=== PATIENT | male | born 1935 | race Caucasian/White ===

== ENCOUNTER 2016-05-10 11:47 | Day surgery (SDC) | payer OTHER ==
[2016-05-10] MEDS ORDERED: LR 1,000 ML IV ONE (12:48)
[2016-05-10] MEDS ORDERED: LIDOCAINE 1% 5 ML SDV ID PRN (12:48)
[2016-05-10] MEDS ORDERED: LIDOCAINE 2% 100 MG/5 ML SYR IVP ONE ×2 (13:21)
[2016-05-10] MEDS ORDERED: PROPOFOL 200 MG/20 ML VIAL ONE ×2 (13:21→13:36)
[2016-05-10] MEDS ORDERED: PHENYLEPHRINE HCL 100 MCG/ML SYR ONE (13:51)
--- NOTE | 2016-05-10 14:38 | GPN ---
PROCEDURE: Total colonoscopy with hot snare and cold biopsy polypectomy. PREOPERATIVE DIAGNOSIS: History of multiple cecal polyps removed 1 year ago, rule out recurrence. POSTOPERATIVE DIAGNOSES: 1. An 8 mm diameter sessile cecal polyp, removed with hot snare polypectomy. 2. A 5 mm diameter sessile sigmoid polyp of the sigmoid colon, removed with cold biopsy polypectomy . CLINICAL HISTORY/INDICATION: The patient is an 80-year-old gentleman, who had a colonoscopy 1 year ago which revealed multiple polyps of the cecum which were removed piecemeal. He was therefore setu p for a 1 year followup colonoscopy. PERMIT: The patient was informed of indications for procedure. Risks and benefits were outlined by me, and informed consent was obtained. PREOPERATIVE MEDICATIONS: General anesthesia per Dr. Lujan. PROCEDURE FINDINGS: CF-180AL videocolonoscope was inserted in the rectum and advanced to the cecum with moderate difficulty due to tortuosity of the colon. Colonic prep was good with adequate visual ization of colonic mucosa. The scope was passed across the ileocecal valve into the distal terminal ileum. The last 5 cm of the terminal ileum appeared normal. In the cecum, there was an [address] sessile polyp which was cleanly removed with hot snare polypectomy. The remainder of the cecum appeared normal, as did the ascending colon, transverse colon, descending colon. In the sigmoid col on, there was a 5 mm diameter sessile polyp, removed with cold biopsy polypectomy cleanly. Remainde r of the sigmoid colon appeared normal. The rectum was normal both in front view and retroflexed po sition. The scope was removed. Digital exam confirmed normal anal canal. Patient tolerated the pr ocedure well and was sent to the recovery room in satisfactory condition. IMPRESSION: 1. Medium-sized colon polyp of the cecum, removed cleanly with hot snare polypectomy. 2. Diminutive polyp in the sigmoid colon, removed with cold biopsy polypectomy. RECOMMENDATIONS: 1. Await path report. 2. Followup surveillance colonoscopy in 3 years' time. /[id number]/MODL
== END 2016-05-10 15:30 | disposition home or self-care (01) ==
LOC: FSGY 11:47
PROVIDERS: ATTEND Internal Medicine Gastroenterology
PROC: 0DBN8ZX Excision of Sigmoid Colon, Via Natural or Artificial Opening Endoscopic, Diagnostic (ICD-10-PCS; 2016-05-10)
PROC: 0DBH8ZX Excision of Cecum, Via Natural or Artificial Opening Endoscopic, Diagnostic (ICD-10-PCS; principal; 2016-05-10 13:00)
DX: D12.0 Benign neoplasm of cecum (principal); D12.5 Benign neoplasm of sigmoid colon; Z86.010 Personal history of colon polyps; I10 Essential (primary) hypertension; I25.10 Atherosclerotic heart disease of native coronary artery without angina pectoris; I48.91 Unspecified atrial fibrillation; K21.9 Gastro-esophageal reflux disease without esophagitis; Z79.01 Long term (current) use of anticoagulants; Z87.891 Personal history of nicotine dependence
CPT/HCPCS: J2001; J2370; J2704

== ENCOUNTER → 2017-01-23 | Outpatient (CLI) | payer OTHER | LOC: BMCIMAGING 14:21 | PROVIDERS: ATTEND Orthopaedic Surgery | DX: M11.261 Other chondrocalcinosis, right knee (principal); M17.11 Unilateral primary osteoarthritis, right knee; M25.551 Pain in right hip; Z96.641 Presence of right artificial hip joint ==

== ENCOUNTER → 2018-01-01 | Outpatient (CLI) | payer OTHER, MEDICARE | LOC: BMCIMAGING 10:42 | DX: M50.320 Other cervical disc degeneration, mid-cervical region, unspecified level (principal); M50.221 Other cervical disc displacement at C4-C5 level; M48.02 Spinal stenosis, cervical region ==

== ENCOUNTER → 2018-07-09 | Outpatient (CLI) | payer OTHER, MEDICARE | LOC: BMCIMAGING 14:18 | PROVIDERS: ATTEND Orthopaedic Surgery | DX: Z47.1 Aftercare following joint replacement surgery (principal); Z96.641 Presence of right artificial hip joint; Z96.652 Presence of left artificial knee joint ==